=== PATIENT | male | born 1975 | race Caucasian/White ===

== ENCOUNTER 2020-02-07 13:28 | Emergency (ER) | payer BC ==
[~2020-02-07] VITALS: Ht 172.7 cm; Wt 104.3 kg
[~2020-02-07 13:28] MED LIST: BACTRIM DS TAB1 EACH; HYDROCODON-ACE1 EAC8
[2020-02-07] MEDS ORDERED: PRINIVIL10 MG PO (13:37)
[2020-02-07] MEDS ORDERED: PREDNISONE 10 M10 MG PO (14:03)
[2020-02-07] MEDS ORDERED: HYDROXYZINE HCL25 M2 PO (14:04)
[2020-02-07] MEDS ORDERED: TRIAMCINOLONE A80 G2 TOP (14:04)
[2020-02-07 14:25] VITALS: BP 149/107
== END 2020-02-07 14:25 | disposition home or self-care (01) ==
LOC: M.ERS 13:28
DX: R21 Rash and other nonspecific skin eruption (principal); L29.9 Pruritus, unspecified; I10 Essential (primary) hypertension; Z79.899 Other long term (current) drug therapy